=== PATIENT | male | born 1990 | race African-American/Black ===

== ENCOUNTER 2018-01-19 16:22 | Inpatient (IN) ==
[2018-01-19] MEDS ORDERED: LORazepam 1 MG Tablet PO PRN (19:28)
[2018-01-19] MEDS ORDERED: Aluminum/Magnesium/Simethacone Susp 30 ML UDC PO PRN (19:28)
[2018-01-19] MEDS ORDERED: Acetaminophen 325 MG Tablet PO PRN (19:28)
[2018-01-19] MEDS: carBAMazepine 200 MG Tablet PO SCH (20:49)
[2018-01-19] MEDS: lamoTRIgine 100 MG Tablet PO SCH (20:56)
[2018-01-20] MEDS: lamoTRIgine 100 MG Tablet PO SCH ×2 (09:07→21:20)
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
[2018-01-20 10:07] LABS: Chol/HDL Ratio 3.89 Ratio; HDL Cholesterol 67.3 mg/dL (40.0-60.0)
--- NOTE | 2018-01-20 14:58 | P.CONNEU ---
History of Present Illness Service: Neurology Primary Care Provider: UNKNOWN Chief Complaint: Seizure History of Present Illness: 27-year-old admitted for mood disorder. History of underlying epilepsy since age 17 with intractable seizures on Lamictal carbamazepine with history of vagus nerve stimulator implant. There is some question regarding whether his aggression may be related to carbamazepine. Review of Systems All other systems reviewed negative except as stated in HPI [facility] - Substance Use History Substance History: No History of Abuse - Travel History Recent Travel in the [place] Within the Last 8 Weeks: No Recent Travel Out of the Country Within the Last 8 Weeks: No Medications and Allergies Active Medications: Active Medications Acetaminophen (Tylenol) 650 mg PO Q4H PRN PRN Reason: Pain 1-5 or Temp >101F Last Admin: 01/19/18 21:13 Dose: 650 mg Al Hydrox/Mg Hydrox/Simethicone (Mag-Al Plus Susp Liq) 30 ml PO Q6H PRN PRN Reason: DYSPEPSIA Al Hydroxide/Mg Hydroxide (Milk Of Magnesia Liq) 30 ml PO Q12H PRN PRN Reason: Mild Constipation Carbamazepine (Tegretol) 400 mg PO HS [facility] Last Admin: 01/19/18 20:49 Dose: 400 mg Lamotrigine (Lamictal) 200 mg PO BID [facility] Last Admin: 01/20/18 09:07 Dose: 200 mg Nicotine (Habitrol 21 Mg Patch.24 Hr) 1 patch T-DERMAL DAILY [facility] Last Admin: 01/20/18 09:41 Dose: Not Given Zolpidem Tartrate (Ambien) 5 mg PO [facility] Allergies Allergy/AdvReac Type Severity Reaction Status Date / Time No Known Allergies Allergy Unverified 01/19/18 19:25 Exam Vital signs: Vital Signs 01/19/18 21:08 01/19/18 22:00 01/20/18 05:41 Temperature 98.3 F 97.4 F L Pulse Rate 70 51 L Respiratory Rate 18 16 17 Blood Pressure 122/75 103/50 L Pulse Oximetry 99 97 Intake & Output 01/19/18 01/20/18 01/20/18 18:59 06:59 18:59 Weight 81.1 kg Other: Weight On Admission 81.1 kg Results - Labs Labs: Laboratory Results - last 24 hr 01/20/18 09:21 Triglycerides 71 Cholesterol 262 H LDL Cholesterol, Calc 181 H HDL Cholesterol 67.3 H Cholesterol/HDL Ratio 3.89 Review/Management - Diagnosis (1) Intractable epilepsy Code(s): G40.919 - Epilepsy, unspecified, intractable, without status epilepticus Status: Acute Current Visit: Yes - Review/Management Plan: Although possible suspect less likely that current aggression mood disorder related Tegretol which is usually used to help with mood stabilization. In addition Aptiom is a carbamazepine related medication similar to Tegretol Wanted help that the combination Lamictal and Tegretol would help his epilepsy and mood control. Possibly increase in Lamictal may be of help. Recommendations Would continue seizure medication Further adjustment by his outpatient neurologist We will obtain an EEG Follow-up seizure medication level
[2018-01-20 15:22] LABS: Hemoglobin A1c 4.1 % (4.3-6.0)
[2018-01-20] MEDS: carBAMazepine 200 MG Tablet PO SCH (21:19)
[2018-01-20] MEDS: Zolpidem Tartrate 5 MG Tablet PO SCH (21:19)
[2018-01-21] MEDS: lamoTRIgine 100 MG Tablet PO SCH ×2 (09:49→20:58)
[2018-01-21] MEDS: carBAMazepine 200 MG Tablet PO SCH ×2 (09:50→21:00)
--- NOTE | 2018-01-21 13:29 | P.PNPSY ---
Subjective Chief Complaint: Irritability, insomnia, dysphoria Remarks: Patient seen and examined with nurse. Chart reviewed. Case discussed with nursing staff who reports patient presents as somewhat suspicious and passive aggressive. However, overall, nurse reports that patient has been no behavioral problem and has been functioning well on the unit. Case discussed with counselor who will reach out to family for collateral information. On my examination today, the patient continues to complain of poor sleep but says that he slept better with the Ambien than he did with the trazodone or the Seroquel. He says that he is feeling less irritable and says that he has had no negative thoughts about his family or anyone else. He denies any violent ideation towards family or anyone else. No side effects from medications. We discuss medication adjustments going forward as well as adjustment and carbamazepine dose by neurology. No physical complaints. Vital Signs Temp Pulse Resp BP 01/21/18 05:40 97.6 F 65 18 126/78 Intake and Output 01/21/18 01/21/18 01/21/18 06:59 14:59 22:59 Intake Total 360 / 360 Balance 360 / 360 Intake: Oral 360 / 360 Other: Weight 81.9 kg Laboratory Results - last 24 hr 01/20/18 01/21/18 09:21 07:55 Hemoglobin A1c 4.1 L Carbamazepine 8.3 Labs reviewed. Lamictal level was obtained from outside hospital by nurse and is within the therapeutic range. Carbamazepine level within therapeutic range. EKG reviewed. Review of Systems All other systems reviewed negative except as stated in HPI Mental Status Examination Appearance: Appropriate Consciousness: Alert Orientation: x4 Motor Activity: Normal gait, Other (No ictal activity noted. No other motor abnormalities noted.) Speech: Unremarkable Language: Adequate Fund of Knowledge: Adequate Attention and Concentration: Adequate Memory: Unremarkable (Grossly intact on clinical exam) Mood: Other (Decreased irritability) Affect: Appropriate Thought Process & Associations: Intact, Logical, Linear Thought Content: Appropriate Hallucination Type: None Delusion Type: None Suicidal Ideation: No Suicidal Plan: No Suicidal Intention: No Homicidal Ideation: No Homicidal Plan: No Homicidal Intention: No Insight: Adequate Judgment: Adequate Assessment and Plan - Assessment (1) Adjustment disorder with other symptoms Code(s): F43.29 - Adjustment disorder with other symptoms Status: Acute - Plan Plan: Continue Ambien 5mg qHS scheduled. I will make additional 5mg Ambien available on a p.r.n. basis for insomnia. I have again discussed with patient that Ambien is purely a hypnotic and offers no, e.g. mood stabilization properties. Patient says that all that he wants is a sleep aid. Collateral information to be obtained by counselor. Neurology input appreciated. Continue to monitor on the inpatient unit. Continue other care as ordered. Justification for Continued Inpatient Stay: Medication changes. Discharge Planning: Pending outcome of observation. Request Healthcare Surrogate/Guardian Advocate?: No
[2018-01-21] MEDS ORDERED: Zolpidem Tartrate 5 MG Tablet PO PRN (15:41)
[2018-01-21] MEDS: Zolpidem Tartrate 5 MG Tablet PO SCH (21:01)
--- NOTE | 2018-01-22 00:51 | ECG ---
Date Performed: 01/20/2018 Time Performed: 12:36:02 PTAGE: 27 years EKG: Sinus rhythm WITH SINUS ARRHYTHMIA EARLY REPOLARIZATION BORDERLINE ECG NO PREVIOUS TRACING DOCTOR: Yifan Monroy Interpretating Date/Time 01/22/2018 00:49:38
[2018-01-22] MEDS: lamoTRIgine 100 MG Tablet PO SCH ×2 (09:06→19:32)
[2018-01-22] MEDS: carBAMazepine 200 MG Tablet PO SCH ×2 (09:07→19:33)
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
--- NOTE | 2018-01-22 17:41 | MG ---
cc: Keesha Juarez MD EEG NUMBER: [id number] REFERRING: Leonora INDICATIONS: In room 2605B with hyperventilation and photic listed as good effort. EEG is awake, drowsy, asleep without any imaging. Admitted for mood disorder, history of epilepsy, vagus nerve stimulator on Tegretol, Lamictal, Ambien. DESCRIPTION OF RECORD: The patient has overall background alpha of 8 to 8.5 Hz, 20-40 microvolt symmetrical background, fairly well organized. Photic stimulation was performed at the beginning portion, seems to have a positive driving response. Well organized background. Hyperventilation is performed without any attenuation. Good effort. No epileptic activity. Overall findings do not show any epileptiform features. IMPRESSION: Normal appearing electroencephalogram without any epileptiform features in this recording. Clinical correlation. Keesha Juarez MD DF/ct , 04:50 PM , 04:56 PM
[2018-01-22 18:46] VITALS: BP 140/71; PULSE 72; RESP 17; TEMP 98.4; O2SAT 99
== END 2018-01-22 19:25 | disposition left against medical advice (07) ==
LOC: H270 18:15 → H260 01-20 09:52
PROVIDERS: ADMIT Psychiatry & Neurology Psychiatry; ATTEND Psychiatry & Neurology Psychiatry